=== PATIENT | male | born 1950 | race Caucasian/White ===

== ENCOUNTER 2017-11-29 15:22 | Inpatient (IN) | payer BC, MEDICARE ==
[~2017-11-29] VITALS: Ht 182.9 cm; Wt 107.6 kg
[~2017-11-29 15:22] MED LIST: COZAAR 25MG25 MG/TAB PO; CRESTOR 10MG10 MG PO; IPRATROPIUM BROM3 M1 IH; LEVAQUIN 5500 MG/TA1 PO; MEDROL 4MG DOSPA4 MG PO; NORCO 325 MG-51 TAB PO; PREDNISONE20 MG PO; PROTONIX 40MG T40 MG PO; ZITHROMAX Z PA250 MG PO
[2017-12-22] VITALS (14 sets, daily range): BP systolic 107–136; BP diastolic 51–78; PULSE 67–88; TEMP 97.4–97.8
[2017-12-22 06:24] LABS: HEMATOCRIT 46.1 % (42.0-52.0); HEMOGLOBIN 15.2 g/dl (13.5-18.0); MEAN CELL VOLUME 91 fl (80.0-100.0); MEAN CORPUSCULAR HEMOGLOBIN 30 pg (27.0-31.0); MEAN CORPUSCULAR HGB CONC 33 g/dl (33.0-37.0); MEAN PLATELET VOLUME 10.1 fl (7.4-10.4); PLATELET COUNT 221 K/mm3 (130-400); RED BLOOD COUNT 5.06 M/mm3 (4.20-5.60); REDCELL DISTRIBUTION WIDTH-CV 13.3 % (11.5-14.5)
[2017-12-22] MEDS ORDERED: ZOCOR 40MG40 MG PO (06:30)
[2017-12-22] MEDS ORDERED: COZAAR100 MG PO (06:31)
[2017-12-22] MEDS ORDERED: ASPIRIN E.C. 8181 MG PO (06:32)
[2017-12-22 14:07] LABS: HEMATOCRIT 35.5 % (42.0-52.0); HEMOGLOBIN 12.2 g/dl (13.5-18.0)
[2017-12-23] VITALS (7 sets, daily range): BP systolic 109–139; BP diastolic 50–70; PULSE 80–110; TEMP 97.9–98.7
[2017-12-23 05:38] LABS: MEAN CELL VOLUME 91 fl (80.0-100.0); MEAN CORPUSCULAR HEMOGLOBIN 30 pg (27.0-31.0); MEAN CORPUSCULAR HGB CONC 33 g/dl (33.0-37.0); MEAN PLATELET VOLUME 10.1 fl (7.4-10.4); PLATELET COUNT 234 K/mm3 (130-400); RED BLOOD COUNT 4.01 M/mm3 (4.20-5.60); REDCELL DISTRIBUTION WIDTH-CV 13.3 % (11.5-14.5)
[2017-12-23 05:39] LABS: HEMATOCRIT 36.4 % (42.0-52.0)
[2017-12-23 05:49] LABS: CALCIUM 8.3 mg/dL (8.4-10.2); CREATININE, serum 1.02 mg/dL (0.66-1.25); POTASSIUM 4.7 mmol/L (3.4-5.0)
[2017-12-23 06:17] LABS: BAND 4 % (0-10); LYMPHOCYTE 21 % (20.0-51.0); NEUTROPHILS 69 % (42.0-75.2); PLATELET ESTIMATE NORMAL (NORMAL)
[2017-12-24 00:33] VITALS: BP 116/49; PULSE 92; TEMP 98.5
[2017-12-24 04:00] VITALS: BP 115/66; PULSE 88; TEMP 98.2
[2017-12-24 08:00] VITALS: TEMP 98.1
[2017-12-24 08:01] VITALS: BP 127/74; PULSE 82; TEMP 98.2
[2017-12-24 11:37] VITALS: BP 107/67; PULSE 83; TEMP 98.3
[2017-12-24 16:31] VITALS: BP 106/62; PULSE 100; TEMP 98.6
[2017-12-25 07:48] VITALS: BP 126/73; PULSE 82; TEMP 97.5
[2017-12-25 13:05] VITALS: BP 105/70; PULSE 86; TEMP 97.9
== END 2017-12-25 13:40 | disposition home or self-care (01) | DRG 708 ==
LOC: INPTSU 12-22 05:31 → SURG 12-22 05:31
PROVIDERS: Nurse Anesthetist, Certified Registered; Urology
PROC: 0VT00ZZ Resection of Prostate, Open Approach (ICD-10-PCS; principal; 2017-12-22 07:30)
PROC: 07BC0ZX Excision of Pelvis Lymphatic, Open Approach, Diagnostic (ICD-10-PCS; 2017-12-22 07:30)
DX: C61 Malignant neoplasm of prostate (principal); I10 Essential (primary) hypertension; K21.9 Gastro-esophageal reflux disease without esophagitis; E78.00 Pure hypercholesterolemia, unspecified; Z87.891 Personal history of nicotine dependence; Z85.828 Personal history of other malignant neoplasm of skin
CPT/HCPCS: A9284; J0690; J1100; J2250; J2370; J2405; J2550; J2704; J2765; J3010; J3480; J7050; J7120

== ENCOUNTER → 2017-12-05 | Outpatient (CLI) | payer BC | LOC: COL.RAD 07:19 | DX: C61 Malignant neoplasm of prostate (principal); K76.0 Fatty (change of) liver, not elsewhere classified | CPT/HCPCS: Q9967 ==

== ENCOUNTER 2018-01-05 10:28 | Emergency (ER) | payer BC, MEDICARE ==
[~2018-01-05] VITALS: Ht 182.9 cm; Wt 104.5 kg
[~2018-01-05 10:28] MED LIST changes: +ASPIRIN E.C. 8181 MG PO; +COZAAR100 MG PO; +ZOCOR 40MG40 MG PO
[2018-01-05 10:37] VITALS: TEMP 98.5
[2018-01-05 11:10] LABS: BASO # 0.1 (0.0-0.2); EOS # 0.1 (0.0-0.7); EOS % 0.7 % (0-4.0); GRAN # 9.3 (1.4-6.5); GRAN % 73.6 % (42.2-75.2); HEMATOCRIT 40.8 % (42.0-52.0); HEMOGLOBIN 13.3 g/dl (13.5-18.0); LYMPH # 2.3 (1.2-3.4); LYMPH % 18.1 % (20.0-51.0); MEAN CELL VOLUME 91 fl (80.0-100.0); MEAN CORPUSCULAR HEMOGLOBIN 30 pg (27.0-31.0); MEAN CORPUSCULAR HGB CONC 33 g/dl (33.0-37.0); MEAN PLATELET VOLUME 9.7 fl (7.4-10.4); MONO # 0.8 (0.1-0.6); MONO % 6.1 % (1.7-9.3); PLATELET COUNT 340 K/mm3 (130-400); RED BLOOD COUNT 4.49 M/mm3 (4.20-5.60); REDCELL DISTRIBUTION WIDTH-CV 13.8 % (11.5-14.5)
[2018-01-05 11:18] LABS: ALBUMIN 4.4 gm/dL (3.5-5.0); BILIRUBIN,TOTAL 0.8 mg/dL (0.0-1.0); CALCIUM 9.2 mg/dL (8.4-10.2); CREATININE, serum 1.09 mg/dL (0.66-1.25); POTASSIUM 4.4 mmol/L (3.4-5.0); TOTAL PROTEIN 7.9 gm/dL (6.4-8.2)
[2018-01-05] MEDS ORDERED: NORCO 325 MG-51 TAB PO ×2 (11:18→14:07)
[2018-01-05 12:19] LABS: COLLECTION METHOD CATHETER
[2018-01-05 12:30] LABS: AMORPHOUS CRYSTAL Present /uL; MUCOUS Present /lpf; PH 5 (5-8); SQUAMOUS EPITHELIAL None Seen /hpf; URINE APPEARANCE Cloudy; URINE BACTERIA Rare /hpf; URINE BILIRUBIN Negative (NEGATIVE); URINE BLOOD 3+ (NEGATIVE); URINE COLOR Yellow; URINE GLUCOSE Negative (NEGATIVE); URINE KETONE Negative (NEGATIVE); URINE LEUKOCYTE ESTERASE 2+ (NEGATIVE); URINE NITRATE Negative (NEGATIVE); URINE PROTEIN(semi-quant) 2+ (NEGATIVE); URINE RBC >50 /hpf; URINE UROBILINOGEN Negative (NEGATIVE)
[2018-01-05] MEDS ORDERED: CEPHALEXIN500 M1 PO (14:07)
[2018-01-05 14:50] VITALS: BP 102/63; PULSE 102
== END 2018-01-05 15:09 | disposition home or self-care (01) ==
LOC: COL.ER 10:28
PROVIDERS: Emergency Medicine
DX: I95.9 Hypotension, unspecified (principal); N39.0 Urinary tract infection, site not specified; I10 Essential (primary) hypertension; G89.18 Other acute postprocedural pain; N50.819 Testicular pain, unspecified
CPT/HCPCS: J0696; J7030

== ENCOUNTER → 2020-04-30 | Outpatient (CLI) | payer BC ==
[~2020-04-30] MED LIST changes: +CEPHALEXIN500 M1 PO
== END ==
LOC: DIA.ED 04-16 16:43
DX: E11.9 Type 2 diabetes mellitus without complications (principal)
CPT/HCPCS: G0108

== ENCOUNTER → 2020-05-14 | Outpatient (CLI) | payer BC | LOC: DIA.ED 07:50 | DX: E11.40 Type 2 diabetes mellitus with diabetic neuropathy, unspecified (principal); Z79.84 Long term (current) use of oral hypoglycemic drugs; I10 Essential (primary) hypertension; E78.5 Hyperlipidemia, unspecified; E66.8 Other obesity | CPT/HCPCS: G0108 ==

== ENCOUNTER 2022-11-08 18:17 | Emergency (ER) | payer OTHER ==
[2022-11-08 18:49] LABS: ALANINE AMINOTRANSFERASE 78 U/L (0-55); ALBUMIN 3.5 gm/dL (3.4-4.8); ALKALINE PHOSPHATASE 73 U/L (40-150); ANION GAP 18 mmol/L (7-16); AST,SGOT 126 U/L (5-34); BILIRUBIN,TOTAL 1.1 mg/dL (0.2-1.2); BLOOD UREA NITROGEN 19 mg/dL (8-26); CALCIUM 8.9 mg/dL (8.4-10.2); CARBON DIOXIDE 16 mmol/L (23-31); CHLORIDE 104 mmol/L (98-107); CREATININE, serum 1.04 mg/dL (0.72-1.25); GLUCOSE 215 mg/dL (70-99); MEAN CELL VOLUME 89 fl (80.0-100.0); MEAN CORPUSCULAR HEMOGLOBIN 29 pg (27-31); MEAN CORPUSCULAR HGB CONC 33 g/dl (33.0-37.0); MEAN PLATELET VOLUME 10.5 fl (7.4-10.4); PLATELET COUNT 224 K/mm3 (130-400); RED BLOOD COUNT 4.84 M/mm3 (4.20-5.60); REDCELL DISTRIBUTION WIDTH-CV 14.4 % (11.5-14.5); SODIUM 138 mmol/L (136-145); TOTAL PROTEIN 7.1 gm/dL (6.2-8.1); TROPONIN-I < 0.010 ng/mL (0.00-0.033)
[2022-11-08 18:52] LABS: INR 1.3 (0.8-3.0); PROTHROMBIN TIME 13.7 SECONDS (9.7-12.8)
[2022-11-08 19:22] LABS: BASOPHIL 1 % (0-2); EOSINOPHIL 2 % (0-4); LYMPHOCYTE 60 % (20.0-51.0); METAMYELOCYTE 2 % (0-0); NEUTROPHILS 31 % (42.0-75.2); PLATELET ESTIMATE NORMAL (NORMAL)
[2022-11-08 19:30] VITALS: BP 140/80; PULSE 137
[2022-11-08 19:55] LABS: COLLECTION METHOD IN
[2022-11-08 20:06] LABS: URINE APPEARANCE Turbid (CLEAR/HAZY); URINE BLOOD 3+ (NEGATIVE); URINE COLOR Amber (YELLOW); URINE GLUCOSE 2+ (NEGATIVE); URINE KETONE TRACE (NEGATIVE); URINE NITRATE Negative (NEGATIVE); URINE PROTEIN(semi-quant) 3+ (NEGATIVE); URINE UROBILINOGEN 0.2 E.U/dL (0.2-1.0)
[2022-11-08 20:11] LABS: AMORPHOUS CRYSTAL Present (NOT PRESENT)
[2022-11-08 20:12] LABS: TRICYCLIC ANTIDEPRESS URINE NEGATIVE
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
== END 2022-11-08 19:56 ==
LOC: COL.ER 18:17
PROVIDERS: Family Medicine
DX: S06.9X9A Unspecified intracranial injury with loss of consciousness of unspecified duration, initial encounter (principal); S00.11XA Contusion of right eyelid and periocular area, initial encounter; S20.311A Abrasion of right front wall of thorax, initial encounter; J96.01 Acute respiratory failure with hypoxia; J98.8 Other specified respiratory disorders; V47.5XXA Car driver injured in collision with fixed or stationary object in traffic accident, initial encounter; Y92.410 Unspecified street and highway as the place of occurrence of the external cause
CPT/HCPCS: J1100; J1953; J2250; J2704